=== PATIENT | male | born 1980 | race Caucasian/White ===

== ENCOUNTER 2024-03-09 01:47 | Emergency (ER) | payer BC, SELFPAY ==
--- OUTSIDE RECORDS SUMMARY | 2024-03-09 01:50 | XMS REPORT | Continuity of Care Document ---
Author Name Unknown Address [address] [place] [address] [facility] thconnect Address [address] [place] [address] Care Team Providers Care Opal Polisher Name Role Phone Pcp, Patient Does Not Have A Primary Care Physic maria luisa Mame Rey MD Attending Clinician [phone] MAME REY Attending Clinician Unavailable Enrrique Decker Attending Clinician [phone] ENRRIQUE RUSSELL Attending Clinician Unavailable Doctor Unassigned, [place] Attending Clinician U alexis Ley RN, Rach Jansen Attending Clinician [phone] Maegan Dunne Attending Clinician [phone] Pavel Payton MD Attending Clinician [phone] MAME REY Admitting Clinician Unavailable Pavel Payton MD Admitting Clinician [phone] Payers Payer Name Policy Type Policy Number Effective Date Expirati on Date Source [facility] [id number] 2016 00:00:00 Problems Condition Name Condition Details Condition Category Status Onset Date Resolution Date Last Treatment Date Treating Clinician Comments Source NSTEMI (non-ST elevated myocardial infarction ) NSTEMI (non-ST elevated myocardial infarction ) Disease Active 12-30 00:00: 00 [facility] Obesity (BMI 30-39.9) Obesity (BMI 30-39.9) Disease Active 07-13 00:00: 00 [facility] Allergies, Adverse Reactions, Alerts Allergy Name Allergy Type Status Severity Reaction(s) Onset Date Inactive Date Treating Clinician Comments Source NO KNOWN ALLERGIE S Drug Class Active [facility] Social History Social Habit Start Date Stop Date Quantity Comments Source History SDOH Alcohol Frequency [facility] History SDOH Alcohol Std Drinks [facility] History SDOH Alcohol Binge [facility] History of tobacco use Chews Tobacco [facility] to SARS-CoV-2 (event) 2021-09-19 00:00:00 2021-09-29 13:06:00 Not sure [facility] Alcohol intake 2021-09-29 00:00:00 2021-09-29 00:00:00 Ex-drinker (finding) [facility] Alcoholic beverage intake 2021-09-29 00:00:00 2021-09-29 00:00:00 Ex-drinker (finding) [facility] History of Social function 2021-09-29 00:00:00 2021-09-29 00:00:00 [facility] Cigarettes smoked current (pack per day) - Reported 2020-12-30 00:00:00 2020-12-30 00:00:00 [facility] Cigarette pack-years 2020-12-30 00:00:00 2020-12-30 00:00:00 [facility] Tobacco use and exposure 2020-12-30 00:00:00 2020-12-30 00:00:00 User of smokeless tobacco [facility] Alcohol Comment 2020-12-30 00:00:00 2020-12-30 00:00:00 previous moderate weekend consumption [facility] Sex assigned at 1980 00:00:00 1980 00:00:00 [facility] Smoking Status Start Date Stop Date Source Smokes tobacco daily 2020-12-30 00:00:00 [facility] Medications Ordered Medication Name Filled Medication Name Start Date Stop Date Current Medication? Ordering Clinician Indication Dosage Frequency Signature (SIG) Comments Components Source metoprolol succinate XL 25 mg 24 hr tablet 12-27 00:00: 00 Yes [id number] 25mg Take 1 tablet by mouth in the morning. [facility] lisinopriL 2.5 mg tablet 12-27 00:00: 00 Yes [id number] 2.5mg Take 1 tablet by mouth in the morning. [facility] aspirin 81 mg chewable tablet 01-02 00:00: 00 Yes [id number] 81mg Take 1 tablet by mouth daily. [facility] clopidogreL 75 mg tablet 01-02 00:00: 00 Yes [id number] 75mg Take 1 tablet by mouth daily. [facility] lisinopriL 2.5 mg tablet 01-02 00:00: 00 Yes [id number] 2.5mg Take 1 tablet by mouth daily. [facility] atorvastati n 80 mg tablet 01-01 00:00: 00 Yes [id number] 80mg Take 1 tablet by mouth at bedtime. [facility] nitroglycer in 0.4 mg sublingual tablet 01-01 00:00: [id number] 1 tablet under the tongue every 5 (five) minutes as needed for Chest pain. [facility] metoprolol succinate XL 25 mg 24 hr tablet 01-01 00:00: 00 Yes [id number] 25mg Take 1 tablet by mouth daily. [facility] metFORMIN 500 mg tablet 01-01 00:00: 00 Yes [id number] 500mg Take 1 tablet by mouth 2 (two) times daily with meals. [facility] Vital Signs Vital Name Observation Time Observation Value Comments S rashaad Systolic blood pressure 2021-09-29 18:15:00 125 mm[Hg] [facility] Diastolic blood pressure 2021-09-29 18:15:00 75 mm[Hg] [facility] Heart rate 2021-09-29 18:15:00 77 /min [facility] Body height 2021-09-29 18:15:00 188 cm [facility] Body weight 2021-09-29 18:15:00 126.128 kg [facility] BMI 2021-09-29 18:15:00 35.70 kg/m2 [facility] Oxygen saturation in Arterial blood by Pulse oximetry 2021-09-29 18:15:00 96 /min [facility] Encounters Start Date/Time End Date/Time Encounter Type Admission Type Attending [facility] Facility Care Department Encounter ID Source 2023-12-20 00:00:00 2023-12-23 11:35[facility] [id number] [facility] 2023-12-11 00:00:00 2023-12-17 11:02:57 [facility] [id number] [facility] 2022-06-22 09:00:00 2022-06-22 09:00:00 [facility] [id number] 2022-06-22 09:00:00 2022-06-22 09:00:00 [facility] [id number] [facility] 2021-12-25 00:00:00 2021-12-25 00:00:00 Telephone Krissy [facility] [id number] [facility] 2021-10-27 08:00:00 2021-10-27 23:59:00 [facility] [id number] [facility] 2021-10-27 08:00:00 2021-10-27 08:00:00 [facility] [id number] [facility] 2021-09-29 13:20:00 2021-09-29 13:36:22 [facility] [id number] [id number] [id number] [facility] 2021-09-29 13:20:00 2021-09-29 13:36:22 [facility] [id number] [facility] 2021-06-30 00:00:00 2021-06-30 [facility]00[facility] 1..840.114 350.1.13.10 4.2.7.2.686 [id number] [facility] 2021-04-20 10:00:00 2021-04-20 10:00:00 Outpatient [facility] [id number] [facility] 2021-03-29 13:15:26 2021-03-29 17:00:43 [facility] 1..840.114 [id number] 4.2.7.2.686 [id number] [facility] 2021-03-29 13:45:00 2021-03-29 13:45:00 Outpatient R [facility] [id number] [facility] 2021-03-29 00:00:00 2021-03-29 00:00:00 Orders Only Doctor Unassigned, [place] [facility] [id number] [id number] 4.2.7.2.686 [id number] [facility] 2021-03-29 00:00:00 2021-03-29 00:00:00 [facility] 1.840.114 350.1.13.10 4.2.7.2.686 [id number] [facility] 2021-01-03 00:00:00 2021-01-03 00:00:00 Transition of Care Rach Ley [id number] [id number] [id number] [id number] [facility] 2020-12-30 17:18:00 2021-01-01 18:21:00 Hospital Encounter Maegan Mckinley, Pavel Milner [facility] 1.20.114 350.1.13.10 4.2.7.2.686 [id number] [facility] 2020-12-30 16:42:00 2020-12-30 16:42:00 Emergency X [facility] ERT [id number] [facility] Notes Date/Time Note Provider Source 2023-12-23 11:31:50 Patient's paperwork was sent via encrypted email to the email address provided. Patient notified. Brunilda Cordova RN [facility] 2023-12-23 10:47:45 Pt is calling he has a Email to send it to Email: [email or web address] Grimes [facility] 2023-12-23 09:58:35 Poke with patient notify him that the form has been completed by Dr. Rey. Patient will find out a fax number or email to send it to and we will have this sent as soon as possible. Will await a call back from the patient. [facility] 2023-12-23 09:03:08 Herb Cote is a 43 year old male Patient calling to check the status of the forms he dropped off at the office on 12/11/23 to clear him to start a job. Please call patient with update. Thank you Sridevi Woodruff [facility] 2023-12-20 14:57:07 Patient calling to check the status of the forms he dropped off at the office on 12/11/23 to clear him to start a job. Please call patient with update. Thank you Vidhi Renteria [facility] 2023-12-11 16:34:29 Patient came by clinic and dropped off forms he is needing to be able to go back to work. Please advise I placed in Dr.Cai groves Paige Gonzales [facility] 2023-12-11 15:29:36 Herb Cote is a 43 year old male Pt calling to request clearance forms filled out to start a job. Pt is asking if there is an email he can send the forms to. Provided pt with fax number but he prefers email. Since pt is currently out of work, concerned about being able to afford an appt so if an appt is required to clear, please advise of financial options. Please call at [phone].Pts phone is temporarily off. Please advise. Darrian Albarado [facility]
[2024-03-09] MEDS ORDERED: TENECTEPLASE 50 MG/10 ML VIAL IV ONE (01:55)
[2024-03-09] MEDS ORDERED: ONDANSETRON 4 MG/2 ML VIAL ONE ×2 (02:03→02:16)
[2024-03-09] MEDS ORDERED: HEPARIN/D5W 25,000 UNIT/500 ML BAG IV ONE (02:04)
[2024-03-09] MEDS ORDERED: HEPARIN 5000 UNIT/ML 1 ML VIAL ONE (02:04)
[2024-03-09] MEDS ORDERED: MORPHINE 4 MG/ML SYR ONE (02:04)
[2024-03-09] MEDS ORDERED: NITROGLYCERIN/D5W 50 MG/250 ML BTL IV ONE (02:13)
[2024-03-09 02:24] LABS: Absolute Basophils 0.1 K/uL (0-0.5); Absolute Eosinophils 0.3 K/uL (0-0.5); Absolute Lymphocytes (CBC) 3.2 K/uL (0.7-4.9); Absolute Monocytes 0.6 K/uL (0.1-1.3); Absolute Neutrophil 5.6 K/uL (1.8-8.0); Basophils % 0.6 % (0-1.3); Eosinophils % 2.9 % (0-4.4); Hematocrit 46.3 % (39.6-49.0); Hemoglobin 15.4 g/dL (13.6-17.9); Lymphocytes % 32.8 % (15.3-44.8); MCHC 33.3 g/dL (32.0-36.0); MPV 8.5 fL (7.6-11.3); Monocytes % 6.3 % (3.3-12.3); Neutrophils % 57.4 % (41.7-73.7); Nucleated Red Blood Cells % 0.1 % (0-0); Platelets 276 thou/uL (152-406); RBC Red Blood Cell Count 5.33 M/uL (4.33-5.43); Red Cell Distribution Width 14.7 % (12.1-15.2)
[2024-03-09 02:26] LABS: PT Prothrombin Time 11.3 SECONDS (9.4-12.5); PTT, Activated Partial Thromb 34.2 SECONDS (24.3-36.9); Protime INR 1.01
--- NOTE | 2024-03-09 02:34 | EDPHYS ---
Physician Documentation [facility] Name: Herb Cote Age: 43 yrs Sex: Male : 1980 Arrival Date: 03/09/2024 Time: 01:47 Bed 2 Private MD: ED Physician Raji Mcneil HPI: 03/09 01:58 This 43 yrs old Male presents to ER via EMS with complaints of Chest Pain. rt 01:58 Patient with previous history of VT presents to the ED with chest pain started about an rt hour prior to arrival. He did take aspirin. Nitro gave the patient modest relief by EMS. They noted that he had a STEMI. Patient reports worsening chest pain currently. Radiates to the jaw. Has associated nausea, diaphoresis. Symptoms are severe in severity, no other aggravating elevating factors.. Historical: - Allergies: 01:55 GRAPE; bm8 - Home Meds: 01:55 None [Active]; bm8 - PMHx: 01:55 VT; DM; bm8 - PSHx: 01:55 heart stents; bm8 - Immunization history:: Adult Immunizations up to date. - Infectious Disease History:: Denies. - Social history:: Smoking status: Patient reports the use of cigarette tobacco products. ROS: 02:13 Constitutional: Negative for fever, chills, and weight loss, Respiratory: Negative for rt shortness of breath, cough, wheezing, and pleuritic chest pain, MS/Extremity: Negative for injury and deformity, 02:13 Cardiovascular: Positive for chest pain, Negative for edema, 02:13 Abdomen/GI: Positive for nausea, Negative for abdominal pain, 02:13 Skin: Positive for diaphoresis, Negative for Exam: 02:13 Head/Face: Normocephalic, atraumatic. Chest/axilla: Normal chest wall appearance and rt motion. Nontender with no deformity. No lesions are appreciated. Cardiovascular: Regular rate and rhythm with a normal S1 and S2. No gallops, murmurs, or rubs. Normal PMI, no JVD. No pulse deficits. Respiratory: Lungs have equal breath sounds bilaterally, clear to auscultation and percussion. No rales, rhonchi or wheezes noted. No increased work of breathing, no retractions or nasal flaring. Abdomen/GI: Soft, non-tender, with normal bowel sounds. No distension or tympany. No guarding or rebound. No evidence of tenderness throughout. Skin: Warm, dry with normal turgor. Normal color with no rashes, no lesions, and no evidence of cellulitis. MS/ Extremity: Pulses equal, no cyanosis. Neurovascular intact. Full, normal range of motion. 02:13 Constitutional: The patient appears in obvious distress, moderately distressed, 02:13 ECG was reviewed by the Attending Physician. Vital Signs: 01:52 BP 155 / 105; Pulse 75; Resp 18; Temp 98.6; Pulse Ox 100% on R/A; Weight 117.93 kg; bm8 Height 6 ft. 2 in. ; Pain 7/10; 01:55 BP 152 / 103; Pulse 83; Resp 17; Temp 98.6; Pulse Ox 100% ; Pain 7/10; bm8 02:24 BP 141 / 89; Pulse 68; Resp 12; Temp 98.6; Pulse Ox 100% ; Pain 7/10; bm8 01:52 Body Mass Index 33.38 (117.93 kg, 187.96 cm) bm8 01:52 Pain Scale: Adult bm8 01:55 Pain Scale: Adult bm8 02:24 Pain Scale: Adult bm8 Liyah Coma Score: 02:24 Eye Response: spontaneous(4). Motor Response: obeys commands(6). Verbal Response: bm8 oriented(5). Total: 15. MDM: 01:50 Patient medically screened. rt 02:15 Differential diagnosis: acute myocardial infarction. HEART Score: History: Highly rt Suspicious (2), ECG: Significant ST-deviation (2), Age: > 45 and < 65 years (1), Risk Factors: > or = 3 Risk factors for atherosclerotic disease (2), Total Score = 7. The patient was not given aspirin in the Emergency Department. Patient reports taking aspirin within the past 24 hours. Data reviewed: vital signs, nurses notes, EKG. 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 Patient is requesting to go to [facility] as that is where his had his cardiology care in the past.. Management of patient was discussed with the following: Waitstaff Captain: Discussed with accepting wildlife ecology professor at [facility]. I considered the following discharge prescriptions or medication management in the emergency department Medications were administered in the Emergency Department. See MAR. Care significantly affected by the following chronic conditions: Coronary artery disease. Counseling: I had a detailed discussion with the patient and/or guardian regarding the historical points, exam findings, and any diagnostic results supporting the discharge/admit diagnosis, the need to transfer to another facility. Response to treatment: There is no appreciated change of the patient's symptoms at this time. 03/09 01:53 Order name: Basic Metabolic Panel rt 03/09 01:53 Order name: CBC with Diff rt 03/09 01:53 Order name: LFT's rt 03/09 01:53 Order name: Magnesium rt 03/09 01:53 Order name: NT PRO-BNP rt 03/09 01:53 Order name: PT-INR rt 03/09 01:53 Order name: Troponin HS rt 03/09 02:13 Order name: PTT, Activated Partial Thromb EDMS 03/09 01:53 Order name: Cardiac monitoring; Complete Time: 02:03 rt 03/09 01:53 Order name: EKG - Nurse/Tech; Complete Time: 02:03 rt 03/09 01:53 Order name: IV Saline Lock; Complete Time: 02: rt 03/09 01:53 Order name: Labs collected and sent; Complete Time: 02:03 rt 03/09 01:53 Order name: O2 Per Protocol; Complete Time: 02:03 rt 03/09 01:53 Order name: O2 Sat Monitoring; Complete Time: 02:03 rt EC:13 Rate is 74 beats/min. Rhythm is regular, Normal Sinus Rhythm with No ectopy. QRS [place] rt is Normal. NE interval is normal. QRS interval is normal. QT interval is normal. No Q waves. ST Segment is elevated in leads II, III, aVF, >5mm. Clinical impression: Inferior VT - acute. Administered Medications: 02:02 Drug: Tenecteplase IV (Administer 10 ml NS flush BEFORE and AFTER tenecteplase) 45 mg bm8 IV at calculated rate once {Co-Signature: vc1 (Zuleyma Hernandez RN).} Route: IV; Rate: calculated rate; Site: left antecubital; 02:10 Follow up: Response: No adverse reaction; IV Status: Completed infusion; IV Intake: [id number] 02:09 Drug: morphine IVP or IV 4 mg IVP once over 4 mins Route: IVP; Infused Over: 4 mins; bm8 Site: left antecubital; :33 Follow up: Response: No adverse reaction bm8 02:09 Drug: Ondansetron IVP 4 mg IVP once; over 2 minutes Route: IVP; Site: left antecubital; bm8 02:33 Follow up: Response: No adverse reaction bm8 02:11 Drug: Heparin (VT-Bolus with thrombolytic) - HEParin IVP 60 units/kg IVP once; Max 4000 bm8 units {Co-Signature: vc1 (Zuleyma Hernandez RN).} Route: IVP; Site: right antecubital; :33 Follow up: Response: No adverse reaction bm8 02:12 Drug: Heparin (VT Drip) 12 units/kg/[place] - ([place] [address] units, D5W IV 500 ml) IV at bm8 calculated rate Per protocol; Max initial rate 1000 units/hr {Co-Signature: vc1 (Zuleyma Hernandez RN).} Route: IV; Rate: calculated rate; Site: right antecubital; 33 Follow up: Response: No adverse reaction; IV Status: Infusion continued upon transfer bm8 02:17 Drug: Nitroglycerin IV 5 mcg/min IV at calculated rate See Administration Instructions; bm8 Standard concentration 50 mg / 250 mL; Recommended max rate 400 mcg/min; Titrate 5 mcg/min as often as every 5 minutes to achieve goal (see titration policy); Goal parameter SBP less than 160 bpm or resolution of chest pain; Use low-sorbing IV tubing. Route: IV; Rate: calculated rate; Site: left antecubital; 33 Follow up: Response: No adverse reaction; IV Status: Infusion continued upon transfer bm8 02:19 Drug: Ondansetron IVP 4 mg IVP once; over 2 minutes Route: IVP; Site: left antecubital; cp4 02:33 Follow up: Response: No adverse reaction bm8 Disposition: 02:15 Critical Care:. rt Disposition Summary: 03/09/24 01:50 Transfer Ordered Notes[facility] Reason: Higher level of care rt Condition: Critical rt Problem: new rt Symptoms: are unchanged rt Accepting Physician: (03/09/24 02:34) bm8 Diagnosis - ST elevation (STEMI) myocardial infarction of unspecified site rt Forms: - Medication Reconciliation Form rt - SBAR form rt Critical care time excluding procedures: 02:15 Critical care time: Bedside Care: 30 minutes, Consultation: 5 minutes. Total time: 35 rt minutes Signatures: Dispatcher [employer] EDMS Raji Mcneil MD MD rt [place] cp4 Claudio Dhillon RN RN bm8 Zuleyma Hernandez RN vc1 Corrections: (The following items were deleted from the chart) 01:54 01:54 BASIC METABOLIC PANEL+C.LAB.BRZ ordered. EDMS EDMS 01:54 01:54 CBC+H.LAB.BRZ ordered. EDMS EDMS 01:54 01:54 HEPATIC FUNCTION+C.LAB.BRZ ordered. EDMS EDMS 01:54 01:54 MAGNESIUM+C.LAB.BRZ ordered. EDMS EDMS 01:54 01:54 PROBNP+C.LAB.BRZ ordered. EDMS EDMS 01:54 01:54 PROTIME (+INR)+COAG.LAB.BRZ ordered. EDMS EDMS 01:54 01:54 Troponin High Sensitivity+C.LAB.BRZ ordered. EDMS EDMS 02:11 02:08 PTT, ACTIVATED+COAG.LAB.BRZ ordered. EDMS EDMS 02:34 01:50 rt bm8
--- NOTE | 2024-03-09 02:34 | ER ---
Nurse's Notes [facility] Name: Herb Cote Age: 43 yrs Sex: Male : 1980 Arrival Date: 03/09/2024 Time: 01:47 Bed 2 Private MD: Diagnosis: ST elevation (STEMI) myocardial infarction of unspecified site Presentation: 03/09 01:52 Chief complaint: Patient states: I have chest pain that began 2 hrs ago. my jaw line bm8 also hurts. Coronavirus screen: At this time, the client does not indicate any symptoms associated with coronavirus-19. Ebola Screen: Patient negative for fever greater than or equal to 101.5 degrees Fahrenheit, and additional compatible Ebola Virus Disease symptoms Patient denies exposure to infectious person. Patient denies travel to an Ebola-affected area in the 21 days before illness onset. No symptoms or risks identified at this time. Initial Sepsis Screen: Does the patient meet any 2 criteria? No. Patient's initial sepsis screen is negative. Does the patient have a suspected source of infection? No. Patient's initial sepsis screen is negative. Risk Assessment: Do you want to hurt yourself or someone else? Patient reports no desire to harm self or others. Onset of symptoms was March 08, 2024 at 23:45. Care prior to arrival: Medication(s) given: EMS gave Nitro SL 0.4, pt took 325 mg Aspirin and 1 g Motrin before they showed up. 01:52 Method Of Arrival: EMS: [facility] bm8 01:52 Acuity: BEREKET 2 bm8 Triage Assessment: 01:55 General: Appears in no apparent distress. uncomfortable, Behavior is calm, cooperative, bm8 appropriate for age. Pain: Complains of pain in chest Pain radiates to jaw line Pain currently is 7 out of 10 on a pain scale. Quality of pain is described as sharp, shooting, Pain began 2 hours ago. EENT: No deficits noted. No signs and/or symptoms were reported regarding the EENT system. Neuro: Level of Consciousness is awake, alert, obeys commands, Oriented to person, place, time, situation, Appropriate for age. Cardiovascular: Reports chest pain, Heart tones S1 S2 present Capillary refill < 3 seconds in bilateral fingers toes Patient's skin is warm and dry. Rhythm is sinus rhythm ST elevation. Respiratory: Airway is patent Trachea midline Respiratory effort is even, unlabored, Respiratory pattern is regular, symmetrical, Breath sounds are clear bilaterally. GI: Reports nausea, vomiting. : No signs and/or symptoms were reported regarding the genitourinary system. Derm: No signs and/or symptoms reported regarding the dermatologic system. Musculoskeletal: No signs and/or symptoms reported regarding the musculoskeletal system. Historical: - Allergies: :55 GRAPE; bm8 - Home Meds: :55 None [Active]; bm8 - PMHx: :55 AR; DM; bm8 - PSHx: :55 heart stents; bm8 - Immunization history:: Adult Immunizations up to date. - Infectious Disease History:: Denies. - Social history:: Smoking status: Patient reports the use of cigarette tobacco products. Screenin:24 [facility] ED Fall Risk Assessment (Adult) History of falling in the last 3 months, bm8 including since admission No falls in past 3 months (0 pts) Confusion or Disorientation No (0 pts) Intoxicated or Sedated No (0 pts) Impaired Gait No (0 pts) Mobility Assist Device Used No (0 pt) Altered Elimination No (0 pt) Score/Fall Risk Level 0 - 2 = Low Risk Oriented to surroundings, Maintained a safe environment, Educated pt \T\ family on fall prevention, incl call for assistance when getting out of bed, Assessed \T\ reinforced patient's understanding of fall precautions, Hourly rounding (assess needs \T\ fall precautionary measures) done, Used ambulatory aids as needed (educated on \T\ assisted with), Used gait belt as appropriate. Abuse screen: Denies threats or abuse. Nutritional screening: No deficits noted. Tuberculosis screening: No symptoms or risk factors identified. Assessment: 02:13 Reassessment: report called to kirk Fraser at [facility]. bm8 02:24 Tenecteplase (TNKase) screening:. Reassessment: Patient appears in no apparent distress bm8 at this time. Patient and/or family updated on plan of care and expected duration. Pain level reassessed. Patient is alert, oriented x 3, equal unlabored respirations, skin warm/dry/pink. General: Appears in no apparent distress. comfortable, Behavior is calm, cooperative, appropriate for age. Pain: Complains of pain in chest. Neuro: No deficits noted. Level of Consciousness is awake, alert, obeys commands, Oriented to person, place, time, situation, Appropriate for age. Cardiovascular: Reports chest pain, Capillary refill < 3 seconds in bilateral fingers toes Patient's skin is warm and dry. Respiratory: Airway is patent Trachea midline Respiratory effort is even, unlabored, Respiratory pattern is regular, symmetrical. Vital Signs: 01:52 BP 155 / 105; Pulse 75; Resp 18; Temp 98.6; Pulse Ox 100% on R/A; Weight 117.93 kg; bm8 Height 6 ft. 2 in. ; Pain 7/10; 01:55 BP 152 / 103; Pulse 83; Resp 17; Temp 98.6; Pulse Ox 100% ; Pain 7/10; bm8 02:24 BP 141 / 89; Pulse 68; Resp 12; Temp 98.6; Pulse Ox 100% ; Pain 7/10; bm8 01:52 Body Mass Index 33.38 (117.93 kg, 187.96 cm) bm8 01:52 Pain Scale: Adult bm8 01:55 Pain Scale: Adult bm8 02:24 Pain Scale: Adult bm8 Florien Coma Score: 02:24 Eye Response: spontaneous(4). Motor Response: obeys commands(6). Verbal Response: bm8 oriented(5). Total: 15. ED Course: 01:49 Patient arrived in ED. rv1 01:50 Raji Mcneil MD is Attending Physician. rt 01:51 Initiated transfer with Chanda at [facility]. rv1 01:52 Claudio Dhillon, RN is Primary Nurse. bm8 01:55 Triage completed. bm8 01:55 Arm band placed on right wrist. bm8 02:[address] Jin to [facility] 8A RM 11. rv1 02:07 Spoke with Wilberto at [facility], ETA 9 mins. rv1 02:24 Patient has correct armband on for positive identification. Placed in gown. Bed in low bm8 position. Call light in reach. Side rails up X 1. Provided Education on: need for transfer. Client placed on continuous cardiac and pulse oximetry monitoring. NIBP monitoring applied. personnel monitor on. Pulse ox on. NIBP on. Door closed. Noise minimized. Warm blanket given. Pillow given. Verbal reassurance given. Head of bed elevated. 02:24 No provider procedures requiring assistance completed. Initial lab(s) drawn, by , bmIrving sent to lab. Inserted saline lock: 20 gauge in right in left antecubital area, using aseptic technique. Blood collected. Flushed with 10 mL NS. Patient maintains SpO2 saturation greater than 95% on room air. 02:32 Patient transferred, IV remains in place. bm8 Administered Medications: 02:02 Drug: Tenecteplase IV (Administer 10 ml NS flush BEFORE and AFTER tenecteplase) 45 mg bm8 IV at calculated rate once {Co-Signature: vc1 (Zuleyma Hernandez RN).} Route: IV; Rate: calculated rate; Site: left antecubital; 02:10 Follow up: Response: No adverse reaction; IV Status: Completed infusion; IV Intake: [id number] 02:09 Drug: morphine IVP or IV 4 mg IVP once over 4 mins Route: IVP; Infused Over: 4 mins; bm8 Site: left antecubital; :33 Follow up: Response: No adverse reaction bm8 02:09 Drug: Ondansetron IVP 4 mg IVP once; over 2 minutes Route: IVP; Site: left antecubital; bm8 02:33 Follow up: Response: No adverse reaction bm8 02:11 Drug: Heparin (AR-Bolus with thrombolytic) - HEParin IVP 60 units/kg IVP once; Max 4000 bm8 units {Co-Signature: vc1 (Zuleyma Hernandez RN).} Route: IVP; Site: right antecubital; 02:33 Follow up: Response: No adverse reaction bm8 02:12 Drug: Heparin (AR Drip) 12 units/kg/hr - ([place] [address] units, D5W IV 500 ml) IV at bm8 calculated rate Per protocol; Max initial rate 1000 units/hr {Co-Signature: vc1 (Zuleyma Hernandez RN).} Route: IV; Rate: calculated rate; Site: right antecubital; 02:33 Follow up: Response: No adverse reaction; IV Status: Infusion continued upon transfer bm8 02:17 Drug: Nitroglycerin IV 5 mcg/min IV at calculated rate See Administration Instructions; bm8 Standard concentration 50 mg / 250 mL; Recommended max rate 400 mcg/min; Titrate 5 mcg/min as often as every 5 minutes to achieve goal (see titration policy); Goal parameter SBP less than 160 bpm or resolution of chest pain; Use low-sorbing IV tubing. Route: IV; Rate: calculated rate; Site: left antecubital; 02:33 Follow up: Response: No adverse reaction; IV Status: Infusion continued upon transfer bm8 02:19 Drug: Ondansetron IVP 4 mg IVP once; over 2 minutes Route: IVP; Site: left antecubital; cp4 02:33 Follow up: Response: No adverse reaction bm8 Medication: 02:24 VIS not applicable for this client. bm8 Intake: 02:10 IV: 10ml; Total: 10ml. bm8 Outcome: 01:50 ER care complete, transfer ordered by . rt 02:24 Transferred by helicopter to [facility], Transfer form bm8 completed. X-rays sent w/ patient. 02:24 Condition: stable 02:24 Instructed on follow up and referral plans. the need for transfer, safe sex practices, safety practices, Demonstrated understanding of instructions, follow-up care, medications, 02:34 Patient left the ED. bm8 Signatures: Raji Mcneil MD MD rt Sarahi Noe rv1 Nette Santa cp4 Claudio Dhillon RN RN bm8 Zuleyma Hernandez RN vc1
[2024-03-09 02:38] LABS: ALT/SGPT 22 U/L (16-61); AST/SGOT 19 U/L (15-37); Albumin 3.9 g/dL (3.4-5.0); Albumin/Globulin Ratio 1.1 (1.1-1.8); Alkaline Phosphatase 76 U/L (45-117); Anion Gap 9.6 mEq/L (5.0-15.0); BUN Blood Urea Nitrogen 14 mg/dL (7-18); Bicarbonate 28 mEq/L (21-32); Bilirubin Total 0.3 mg/dL (0.2-1.0); Globulin 3.5 g/dL (2.3-3.5); Glomerular Filtration Rate 81 ml/min (=/>90); Glucose Level 141 mg/dL (74-106); Magnesium 1.9 mg/dL (1.6-2.4); NT PRO-BNP 196 pg/mL (<125); Potassium 3.6 mEq/L (3.5-5.1); Protein, Total 7.4 g/dL (6.4-8.2); Sodium Level 139 mEq/L (136-145)
[2024-03-09 02:41] VITALS: TEMP 98.6; O2SAT 100
[2024-03-09 02:44] VITALS: BP 141/89
[2024-03-09 02:46] LABS: Bilirubin Direct < 0.2 mg/dL (0-0.2); Bilirubin Indirect, Calculated 0.1 mg/dL (0.2-0.8)
[2024-03-09 02:47] LABS: Troponin High Sensitivity 125.6 pg/mL (<58.9)
--- NOTE | 2024-03-09 10:16 | EKG ---
Test Date: 2024-03-09 Test Time: 01:48:09 Hot Baller: RV MEASUREMENT RESULTS: Intervals: Rate: 74 MT: 136 QRSD: 108 QT: 408 QTc: 452 Scott: P: 53 MT: 136 QRS: 53 T: 89 INTERPRETIVE STATEMENTS: Normal sinus rhythm with sinus arrhythmia ST elevation, consider inferolateral injury or acute infarct ACUTE UT / STEMI Consider right ventricular involvement in acute inferior infarct Abnormal ECG No previous ECG available for comparison Electronically Signed On 03-09-24 10:16:15 CDT by Rony Rodney
== END 2024-03-09 02:34 | disposition short-term general hospital (02) ==
LOC: ER 01:47
DX: I21.3 ST elevation (STEMI) myocardial infarction of unspecified site (principal); I25.2 Old myocardial infarction; E11.9 Type 2 diabetes mellitus without complications; Z95.818 Presence of other cardiac implants and grafts; Z72.0 Tobacco use
CPT/HCPCS: 36415; 80048; 80076; 83735; 83880; 84484; 85025; 85610; 85730; 92977; 93005; 99285; J1644; J2405; J3101